=== PATIENT | female | born 1975 | race Caucasian/White ===

== ENCOUNTER 2018-04-27 10:02 | Emergency (ER) | payer SELFPAY ==
[~2018-04-27 10:02] MED LIST: ACE3 PO; ACET-1935 PO; ALB0.5 INH; ALBU8.5H12 IH; AZIT1PAC21 PO; BAC10 PO; BEN100 PO; BENZ100C4 PO; CEP500 PO; CEPH-13 PO; CODE118S5 PO; CYCL10TA29 PO; DOXY100T3 PO; GUAI-645 PO; HYDR-653 PO; IBU600 PO; IBU800 PO; IBUP-1618 PO; IBUP-56 PO; IBUP600T22 PO; INDO-21 PO; LOR5 PO; LOR5/325 PO; NO RTN MEDS; PHEN120S16 PO; PRE20 PO; PRED-314 PO; PREN-67 PO; ROBC PO; SERT-177 PO; TRA50 PO
--- NOTE | 2018-04-27 10:04 | ER Report ---
History and Physical Time Seen By MD: 10:04 HPI/ROS CHIEF COMPLAINT: Cough, shortness breath HISTORY OF PRESENT ILLNESS: Patient is a 42-year-old female with a history of active smoking here with several day history of cough, shortness breath, wheezing, rhinorrhea, general malaise, myalgias, arthralgias. Patient reports nausea without vomiting, decreased appetite. Patient was tolerating oral intake without issues. Patient does not have nebulizers or inhalers at home. Patient was noted to be tachycardic at time of evaluation with oxygen saturations of 90% on room air, normotensive, afebrile. Patient reports having a history of recurrent bronchitis. Denies abdominal pain. REVIEW OF SYSTEMS: Constitutional: + chills. Eyes: No discharge. ENT: + mild sore throat. Cardiovascular: No chest pain, no palpitations. Respiratory: + dry cough, + wheezing and shortness of breath. Gastrointestinal: No abdominal pain, no vomiting, + intermittent Genitourinary: No hematuria. Musculoskeletal: No back pain. + myalgias/arthralgias Skin: No rashes. Neurological: No headache. Allergies: Coded Allergies: No Known Drug Allergies (Verified , 04/27/18) Uncoded Allergies: ORANGES (Allergy, Mild, 05/14/10) Home Meds Active Scripts Oseltamivir Phosphate (TAMIFLU) 75 Mg Cap, 75 MG PO BID for 5 Days, #10 CAP 0 Refills Prov:NAYLA MORRIS DO 04/27/18 Albuterol Sulfate (PROVENTIL HFA) 6.7 Gm Inh, 2 PUFF INH Q4-6H, #1 INH Prov:NAYLA MORRIS DO 04/27/18 Promethazine HCl/Codeine (Prometh-Codein 6.25-10 mg/5 ml) 5 Ml Syrup, 1 TBS PO QHS PRN for COUGH, #1 BOT Prov:NAYLA MORRIS DO 04/27/18 Prednisone (PREDNISONE) 50 Mg Tablet, 50 MG PO QDAY for 4 Days, #4 TAB Prov:NAYLA MORRIS DO 04/27/18 Hx Smoking: Yes (1/2PPD) Smoking Status: Current: Every Day Smoker Hx Substance Use Disorder: No Hx Alcohol Use: Yes (OCC) Constitutional Vital Sign - Last 24 Hours 2/704/27/18 04/27/18 04/27/18 10:10 10:27 10:27 10:34 Temp 97.9 Pulse 117 88 94 Resp 16 17 17 B/P (MAP) 127/74 Pulse Ox 90 92 O2 Delivery Room Air Nasal Cannula O2 Flow Rate 2.0 Physical Exam General Appearance: The patient is alert, has no immediate need for airway protection and no signs of toxicity. NAD Eyes: Pupils equal and round no pallor or injection. ENT, Mouth: Mucous membranes are moist. + mild erythema without exudates of post oropharynx Respiratory: + diffuse wheezing in all lung bass. Cardiovascular: Regular rhythm, + rapid HR Gastrointestinal: Abdomen is soft and. non tender, no masses, bowel sounds normal. Neurological: No focal neuro finding Skin: Warm and dry, no rashes. Musculoskeletal: Neck is supple non tender. Extremities are nontender, nonswollen and have full range of motion. DIFFERENTIAL DIAGNOSIS: After history and physical exam differential diagnosis was considered for shortness of breath including but not limited to pulmonary infectious process, COPD, asthma, pulmonary embolus and congestive heart failure. Medical Decision Making Data Points Laboratory Hematology Test 04/27/18 10:14 Influenza Virus Type A (PCR) Positive (NEGATIVE) Influenza Virus Type B (PCR) Negative (NEGATIVE) Chemistry Test 04/27/18 10:14 Influenza Virus Type A (PCR) Positive (NEGATIVE) Influenza Virus Type B (PCR) Negative (NEGATIVE) EKG/Imaging Imaging Location: [facility] [place] Patient: Heather Stearns : 1975 Visit/Account:[id number] Date of : 04/27/2018 Exam type: CHEST PA LAT History: Cough for a few days, smoking history, history of bronchitis Comparison: June 20, 2012. Findings: The lungs are free of acute effusions, infiltrates or edema. The cardiac silhouette is normal in size. The trachea is in midline. There are very mild degenerative changes of the thoracic spine IMPRESSION: 1. No acute cardiopulmonary process is seen ED Course/Re-evaluation ED Course Patient is a 42-year-old female here with complaints of cough, shortness breath, wheezing, diffuse myalgias and arthralgias. Chest x-ray, influenza screen were checked. Chest x-ray showed no acute consolidations or effusions. Patient received nebulizers, prednisone for initial treatment. Four subsequent day course of prednisone 50 mg was prescribed, patient was given scripts for promethazine with codeine, inhaler, Tamiflu as the patient was positive for influenza. Zofran prescription provided. Close PCP follow-up recommended. Return precautions provided. Decision to Disposition Date: Apr 27, 2018 Decision to Disposition Time: 11:26 Depart Departure Latest Vital Signs Vital Signs Date Time Temp Pulse Resp B/P (MAP) Pulse Ox O2 Delivery O2 Flow Rate FiO2 04/27/18 10:34 94 17 04/27/18 10:27 92 Nasal Cannula 2.0 04/27/18 10:10 97.9 127/74 Impression: Primary Impression: Cough Additional Impression: Influenza Condition: Improved Disposition: HOME OR SELF-CARE New Scripts Ondansetron 4 Mg Odt (ONDANSETRON 4 MG ODT) 4 Mg Tab.rapdis 4 MG PO Q6-8H PRN for NAUSEA, #20 TAB Prov: NAYLA MORRIS DO 04/27/18 Oseltamivir Phosphate (TAMIFLU) 75 Mg Cap 75 MG PO BID for 5 Days, #10 CAP 0 Refills Prov: NAYLA MORRIS DO 04/27/18 Albuterol Sulfate (PROVENTIL HFA) 6.7 Gm Inh 2 PUFF INH Q4-6H, #1 INH Prov: NAYLA MORRIS DO 04/27/18 Promethazine HCl/Codeine (Prometh-Codein 6.25-10 mg/5 ml) 5 Ml Syrup 1 TBS PO QHS PRN for COUGH, #1 BOT Prov: NAYLA MORRIS DO 04/27/18 Prednisone (PREDNISONE) 50 Mg Tablet 50 MG PO QDAY for 4 Days, #4 TAB Prov: NAYLA MORRIS S DO 04/27/18 Patient Instructions: Acute Cough (GEN) Additional Instructions: Please drink plenty of water. Take 1 tablet of Tamiflu twice daily for 5 days. You may take 2 puffs of albuterol inhaler every 4-6 hours as needed for wheezing and shortness of breath. Please take 50 mg of prednisone daily for the next 4 days to complete a five-day course. Please return promptly if you develop worsening cough, fevers, inability to keep down food or fluids. You may take 1 teaspoon of promethazine and codeine at night for persistent cough. Please follow-up with your primary care provider in the next 3 days. Problem Qualifiers NAYLA MORRIS DO Apr 27, 2018 10:04
[2018-04-27 10:10] VITALS: BP 127/74
[2018-04-27] MEDS ORDERED: ALBUTEROL/IPRATROPIUM 3 ML NEB NEB ONE ×2 (10:15)
[2018-04-27] MEDS ORDERED: predniSONE 20 MG TAB PO ONE (10:20)
[2018-04-27] MEDS ORDERED: PROM5SYR PO (10:59)
[2018-04-27] MEDS ORDERED: PRED50TA22 PO (10:59)
[2018-04-27] MEDS ORDERED: AZIT-17 PO (10:59)
[2018-04-27] MEDS ORDERED: ALB6.7R INH (10:59)
--- NOTE | 2018-04-27 11:18 | RADIOLOGY IMAGING REPORT ---
FACILITY: [facility] - [place] PATIENT NAME: Heather Stearns : 1975 MR: [id number] V: [id number] EXAM DATE: ORDERING PHYSICIAN: NAYLA MORRIS TECHNOLOGIST: Location: [facility] Patient: Heather Stearns : 1975 Visit/Account:[id number] Date of Sevice: 04/27/2018 Exam type: CHEST PA LAT History: Cough for a few days, smoking history, history of bronchitis Comparison: June 20, 2012. Findings: The lungs are free of acute effusions, infiltrates or edema. The cardiac silhouette is normal in siz e. The trachea is in midline. There are very mild degenerative changes of the thoracic spine IMPRESSION: 1. No acute cardiopulmonary process is seen Report Dictated By: Lucy Chow MD at 04/27/2018 11:08 AM Report E-Signed By: Lucy Chow MD at 04/27/2018 11:14 AM WSN:[email or web address]
[2018-04-27] MEDS ORDERED: OSE75 PO (11:21)
[2018-04-27] MEDS ORDERED: ONDA4TAB9 PO (11:32)
== END 2018-04-27 11:40 | disposition home or self-care (01) ==
LOC: ER 10:15
DX: J11.1 Influenza due to unidentified influenza virus with other respiratory manifestations (principal)
CPT/HCPCS: 71046; 87502; 94640; 99283; J7512; J7620

== ENCOUNTER 2018-06-20 18:49 | Emergency (ER) | payer SELFPAY ==
[~2018-06-20 18:49] MED LIST changes: +ALB6.7R INH; +AZIT-17 PO; +ONDA4TAB9 PO; +OSE75 PO; +PRED50TA22 PO; +PROM5SYR PO
--- NOTE | 2018-06-20 19:05 | ER Report ---
History and Physical Time Seen By MD: 19:00 Hx. of Stated Complaint: PT REPORTS R SIDED MID BACK PAIN THAT RADIATES TO THE FRONT, DENIES INJURY, PAIN STARTED AT 1730 HPI/ROS CHIEF COMPLAINT: Right side pain HISTORY OF PRESENT ILLNESS: 43 year old female presents to the ED with right side pain that started at 1730 when sitting down in a chair. Reports pain is located left posterior axillary line along costal margin that radiates to her mid back between her scapula and to mid axillary line under her armpit. Pain is 10 out of 10, sharp and stabbing. Reports it hurts to breath. Denies taking anything for the pain. Patient reports she has not done any activity today or this past week that would cause the pain; reports she has not done anything out of the abnormal. No hx of injury to that area. REVIEW OF SYSTEMS: Constitutional: Denies fevers, chills. HEENT: No vision changes, no headache, no dizziness. Respiratory: No cough. Reports difficulty breathing due to the pain. Cardiovascular: No chest pain, no palpitations. Gastrointestinal: No vomiting, no abdominal pain. Musculoskeletal: Reports pain located at left posterior axillary line that radiates to her mid upper back and under her armpit. Allergies: Coded Allergies: No Known Drug Allergies (Verified , 06/20/18) Uncoded Allergies: ORANGES (Allergy, Mild, 05/14/10) Home Meds Active Scripts Hydrocodone Bit/Acetaminophen (HYDROCODON-ACETAMINOPHEN 5-325) 1 Each Tablet, 1 EACH PO Q4-6H PRN for PAIN, #12 TAB Prov:MILADYS POE [employer] 06/20/18 Discontinued Scripts Ondansetron 4 Mg Odt (ONDANSETRON 4 MG ODT) 4 Mg Tab.rapdis, 4 MG PO Q6-8H PRN for NAUSEA, #20 TAB Prov:NAYLA MORRIS DO 04/27/18 Oseltamivir Phosphate (TAMIFLU) 75 Mg Cap, 75 MG PO BID for 5 Days, #10 CAP 0 Refills Prov:NAYLA MORRIS DO 04/27/18 Albuterol Sulfate (PROVENTIL HFA) 6.7 Gm Inh, 2 PUFF INH Q4-6H, #1 INH Prov:NAYLA MORRIS DO 04/27/18 Promethazine HCl/Codeine (Prometh-Codein 6.25-10 mg/5 ml) 5 Ml Syrup, 1 TBS PO QHS PRN for COUGH, #1 BOT Prov:NAYLA MORRIS DO 04/27/18 Prednisone (PREDNISONE) 50 Mg Tablet, 50 MG PO QDAY for 4 Days, #4 TAB Prov:NAYLA MORRIS DO 04/27/18 Past Medical/Surgical History Past medical history significant for heart murmur, bronchitis. Past surgical history significant for tubal ligation and left foot orthopedic surgery. Reviewed Nurses Notes: Yes Hx Smoking: Yes (1/2PPD) Smoking Status: Current: Every Day Smoker Hx Substance Use Disorder: No Hx Alcohol Use: Yes (OCC) Constitutional Vital Sign - Last 24 Hours 06/20/18 06/20/18 06/20/18 06/20/18 18:50 19:00 19:15 20:15 Temp 98.3 Pulse 100 101 99 89 Resp 24 17 16 38 B/P (MAP) 155/91 146/97 (113) Pulse Ox 92 91 92 89 O2 Delivery Room Air 06/20/18 06/20/18 06/20/18 06/20/18 20:20 20:30 20:45 21:00 Pulse 85 90 83 Resp 9 21 18 B/P (MAP) 116/91 (99) 108/84 (92) 117/89 (98) Pulse Ox 90 92 90 06/20/18 06/20/18 06/20/18 06/20/18 21:15 21:20 21:25 21:30 Pulse 88 85 88 86 Resp 9 16 19 11 B/P (MAP) 111/75 (87) Pulse Ox 91 90 92 90 06/20/18 06/20/18 06/20/18 06/20/18 21:35 21:40 21:41 21:45 Pulse 81 91 89 Resp 18 15 9 B/P (MAP) 136/77 (96) Pulse Ox 91 90 93 Physical Exam General Appearance: The patient is alert, has no immediate need for airway protection and no current signs of toxicity. Eyes: Pupils equal and round no injection. Respiratory: Chest is non tender, lungs with wheezing throughout to auscultation. Cardiac: regular rate and rhythm Gastrointestinal: Abdomen is soft and non tender, no masses, bowel sounds normal. Musculoskeletal: Pain with palpation to left axiallary line along rib cage and mid back between scapula. Skin: No rashes or lesions. DIFFERENTIAL DIAGNOSIS: After history and physical exam differential diagnosis was considered for PE, muscle strain, pneumonia, pancreatitis, cholecystitis, abdominal dissection, pyelonephritis. Medical Decision Making Data Points Result Diagram: 06/20/18190406/20/181904 Laboratory Hematology Test 06/20/18 19:05 06/20/18 20:45 06/20/18 21:02 06/20/18 21:07 Red Blood Count 5.34 M/uL (4.17-5.56) Mean Corpuscular Volume 93.9 fL (80.0-96.0) Mean Corpuscular Hemoglobin 32.1 pg (26.0-33.0) Mean Corpuscular Hemoglobin Concent 34.2 g/dL (32.0-36.0) Red Cell Distribution Width 13.2 % (11.5-14.5) Mean Platelet Volume 8.0 fL (7.2-11.1) Neutrophils (%) (Auto) 63.4 % (39.4-72.5) Lymphocytes (%) (Auto) 27.5 % (17.6-49.6) Monocytes (%) (Auto) 6.2 % (4.1-12.4) Eosinophils (%) (Auto) 1.7 % (0.4-6.7) Basophils (%) (Auto) 1.2 % (0.3-1.4) Nucleated RBC Relative Count (auto) 0.1 /100WBC Neutrophils # (Auto) 6.9 K/uL (2.0-7.4) Lymphocytes # (Auto) 3.0 K/uL (1.3-3.6) Monocytes # (Auto) 0.7 K/uL (0.3-1.0) Eosinophils # (Auto) 0.2 K/uL (0.0-0.5) Basophils # (Auto) 0.1 K/uL (0.0-0.1) Nucleated RBC Absolute Count (auto) 0.01 K/uL Erythrocyte Sedimentation Rate 25 mm/HOUR (0-20) D-Dimer Quantitative (PE/DVT) 0.92 ug/ml (0-0.50) Sodium Level 135 mmol/L (137-145) Potassium Level 4.2 mmol/L (3.5-5.0) Chloride Level 96 mmol/L (98-107) Carbon Dioxide Level 28 mmol/L (22-31) Blood Urea Nitrogen 11 mg/dl (7-18) Creatinine 0.70 mg/dl (0.52-1.04) Glomerular Filtration Rate Calc > 60.0 Random Glucose 96 mg/dl (75-110) Calcium Level 9.2 mg/dl (8.4-10.2) Total Bilirubin < 0.1 mg/dl (0.2-1.3) Aspartate Amino Transf (AST/SGOT) 22 U/L (0-35) Alanine Aminotransferase (ALT/SGPT) 27 U/L (0-56) Alkaline Phosphatase 84 U/L (0-126) C-Reactive Protein 2.3 mg/dl (<1.0) Total Protein 8.2 g/dl (6.3-8.2) Albumin 4.4 g/dl (3.5-5.0) Amylase Level 59 U/L (0-110) Lipase 58 U/L (23-300) Urine Color Yellow Urine Clarity Slightly-cloudy Urine pH 5.0 pH (4.8-9.5) Urine Specific Benedict S3 Urine Protein Negative mg/dL (NEGATIVE) Urine Glucose (UA) Negative mg/dL (NEGATIVE) Urine Ketones Negative mg/dL (NEGATIVE) Urine Blood Negative (NEGATIVE) Urine Nitrite Negative (NEGATIVE) Urine Bilirubin Negative (NEGATIVE) Urine Urobilinogen Negative mg/dL (0.2-1.9) Urine Leukocyte Esterase Negative (NEGATIVE) Urine RBC 2 /HPF (0-2/HPF) Urine WBC 4 /HPF (0-5/HPF) Urine Squamous Epithelial Cells Many /LPF (</=FEW) Urine Bacteria Few /HPF (NONE-FEW) Urine Mucus Few /HPF (NONE-FEW) Fibrinogen 342 mg/dL (169-449) Chemistry Test 06/20/18 19:05 06/20/18 20:45 06/20/18 21:02 06/20/18 21:07 White Blood Count 10.9 k/uL (4.5-11.0) Red Blood Count 5.34 M/uL (4.17-5.56) Hemoglobin 17.1 g/dL (12.0-16.0) Hematocrit 50.1 % (34.0-47.0) Mean Corpuscular Volume 93.9 fL (80.0-96.0) Mean Corpuscular Hemoglobin 32.1 pg (26.0-33.0) Mean Corpuscular Hemoglobin Concent 34.2 g/dL (32.0-36.0) Red Cell Distribution Width 13.2 % (11.5-14.5) Platelet Count 276 K/uL (150-450) Mean Platelet Volume 8.0 fL (7.2-11.1) Neutrophils (%) (Auto) 63.4 % (39.4-72.5) Lymphocytes (%) (Auto) 27.5 % (17.6-49.6) Monocytes (%) (Auto) 6.2 % (4.1-12.4) Eosinophils (%) (Auto) 1.7 % (0.4-6.7) Basophils (%) (Auto) 1.2 % (0.3-1.4) Nucleated RBC Relative Count (auto) 0.1 /100WBC Neutrophils # (Auto) 6.9 K/uL (2.0-7.4) Lymphocytes # (Auto) 3.0 K/uL (1.3-3.6) Monocytes # (Auto) 0.7 K/uL (0.3-1.0) Eosinophils # (Auto) 0.2 K/uL (0.0-0.5) Basophils # (Auto) 0.1 K/uL (0.0-0.1) Nucleated RBC Absolute Count (auto) 0.01 K/uL Erythrocyte Sedimentation Rate 25 mm/HOUR (0-20) D-Dimer Quantitative (PE/DVT) 0.92 ug/ml (0-0.50) Glomerular Filtration Rate Calc > 60.0 Calcium Level 9.2 mg/dl (8.4-10.2) Total Bilirubin < 0.1 mg/dl (0.2-1.3) Aspartate Amino Transf (AST/SGOT) 22 U/L (0-35) Alanine Aminotransferase (ALT/SGPT) 27 U/L (0-56) Alkaline Phosphatase 84 U/L (0-126) C-Reactive Protein 2.3 mg/dl (<1.0) Total Protein 8.2 g/dl (6.3-8.2) Albumin 4.4 g/dl (3.5-5.0) Amylase Level 59 U/L (0-110) Lipase 58 U/L (23-300) Urine Color Yellow Urine Clarity Slightly-cloudy Urine pH 5.0 pH (4.8-9.5) Urine Specific Benedict S3 Urine Protein Negative mg/dL (NEGATIVE) Urine Glucose (UA) Negative mg/dL (NEGATIVE) Urine Ketones Negative mg/dL (NEGATIVE) Urine Blood Negative (NEGATIVE) Urine Nitrite Negative (NEGATIVE) Urine Bilirubin Negative (NEGATIVE) Urine Urobilinogen Negative mg/dL (0.2-1.9) Urine Leukocyte Esterase Negative (NEGATIVE) Urine RBC 2 /HPF (0-2/HPF) Urine WBC 4 /HPF (0-5/HPF) Urine Squamous Epithelial Cells Many /LPF (</=FEW) Urine Bacteria Few /HPF (NONE-FEW) Urine Mucus Few /HPF (NONE-FEW) Fibrinogen 342 mg/dL (169-449) Coagulation Test 06/20/18 19:05 06/20/18 21:02 06/20/18 21:07 D-Dimer Quantitative (PE/DVT) 0.92 ug/ml Fibrinogen 342 mg/dL Urinalysis Test 06/20/18 20:45 Urine Color Yellow Urine Clarity Slightly-cloudy Urine pH 5.0 pH (4.8-9.5) Urine Specific Benedict S3 Urine Protein Negative mg/dL (NEGATIVE) Urine Glucose (UA) Negative mg/dL (NEGATIVE) Urine Ketones Negative mg/dL (NEGATIVE) Urine Blood Negative (NEGATIVE) Urine Nitrite Negative (NEGATIVE) Urine Bilirubin Negative (NEGATIVE) Urine Urobilinogen Negative mg/dL (0.2-1.9) Urine Leukocyte Esterase Negative (NEGATIVE) Urine RBC 2 /HPF (0-2/HPF) Urine WBC 4 /HPF (0-5/HPF) Urine Squamous Epithelial Cells Many /LPF (</=FEW) Urine Bacteria Few /HPF (NONE-FEW) Urine Mucus Few /HPF (NONE-FEW) EKG/Imaging EKG Interpretation 12 lead EKG: Rhythm: normal sinus rhythm [place]: normal QRS: normal ST segments: normal Monitor Interpretation: Normal Sinus Rhythm Imaging FINDINGS: Positive for bilateral pulmonary arterial emboli. There is thrombus in the right lower lobe artery extending into a segmental and subsegmental distribution. There is subsegmental thrombus in the right upper lobe. There is segmental and subsegmental thrombus in the left lower lobe. The RV to LV ratio remains less than one. No reflux of contrast into the hepatic veins. No right atrial enlargement. Thyroid: Normal Thoracic inlet: No thoracic lymphadenopathy. Heart and great vessels: Heart size is normal. Mediastinum and shanika: No mediastinal or hilar adenopathy. Lungs and pleura: No effusion, consolidation, or pneumothorax. Trace atelectasis at the lung bases. Breast and axilla: Not diagnostically imaged. Bones and soft tissues: No acute osseous abnormality Upper abdomen: Unremarkable. IMPRESSION: Positive for bilateral pulmonary arterial emboli. The clot burden is most notable in the lower lobes involving a segmental and subsegmental distribution. There is minimal clot in the right upper lobe. No CT findings of cardiac strain. ED Course/Re-evaluation ED Course Patient admitted to an exam room, history and physical obtained, differentials considered. Patient presents to ED with right side pain that started at 1730 when sitting down in a chair. Reports pain is located left posterior axillary line along costal margin that radiates to her mid back between her scapula and to mid axillary line under her armpit. Pain is 10 out of 10, sharp and stabbing. Reports it hurts to breath. Denies taking anything for the pain. No hx of injury to that area. Patient unable to take a deep breath due to the pain. Denies nausea, vomiting. Lungs with wheezing throughout. Pain with palpation to left axillary line and mid back. CBC, CMP, d-dimer, amylase, lipase, ESR, CRP, UA EKG, chest x-ray ordered. IV started, NS 1000ml infused. Toradol 15mg IV and Norflex 30 mg IV given. D-dimer 0.92, ESR 25, CRP 2.3. Chest x-ray canceled, and CTA ordered. CTA: Positive for bilateral pulmonary arterial emboli. The clot burden is most notable in the lower lobes involving a segmental and subsegmental distribution. There is minimal clot in the right upper lobe. No CT findings of cardiac strain. Coagulopathy studies ordered. Patient does not have insurance or a primary health care provider. Discussed treatment options with the patient. Patient would like to go with xeralto. Patient given 3 days worth of xeralto to go home with and [facility] or two. She is to return to the ED if she is unable to follow-up with them for a prescription for xarelto. Will also give lortab for pain. Patient is in agreement with plan of care. Decision to Disposition Date: Jun 20, 2018 Decision to Disposition Time: 21:25 Depart Departure Latest Vital Signs Vital Signs Date Time Temp Pulse Resp B/P (MAP) Pulse Ox O2 Delivery O2 Flow Rate FiO2 06/20/18 21:45 89 9 93 06/20/18 21:41 136/77 (96) 06/20/18 18:50 98.3 Room Air Impression: Primary Impression: Pulmonary emboli Condition: Improved Disposition: HOME OR SELF-CARE New Scripts Hydrocodone Bit/Acetaminophen (HYDROCODON-ACETAMINOPHEN 5-325) 1 Each Tablet 1 EACH PO Q4-6H PRN for PAIN, #12 TAB Prov: MILADYS POE 06/20/18 Patient Instructions: Pulmonary Embolism (DC) Additional Instructions: Increase fluid intake. Get plenty of rest. Follow up [facility]. Return to the ER if condition worsens, or you are not able to get your medications. Take your medications as prescribed. Problem Qualifiers Primary Impression: Pulmonary emboli Pulmonary embolism type: other Chronicity: acute Acute cor pulmonale presence: without acute cor pulmonale Qualified Codes: I26.99 - Other pulmonary embolism without acute cor pulmonale MILADYS POE Jun 20, 2018 19:05
[2018-06-20] MEDS ORDERED: NS(*) 0.9% 1000 ML BAG 1,000 ML IV ONE (19:10)
[2018-06-20] MEDS ORDERED: KETOROLAC 15 MG/ML VIAL IVP ONE (19:10)
[2018-06-20] MEDS ORDERED: ORPHENADRINE 60MG/2ML INJ IVP ONE (19:10)
[2018-06-20 19:21] LABS: PLATELET COUNT, AUTOMATED 276 K/uL (150-450)
[2018-06-20] MEDS ORDERED: IOPAMIDOL 76% 150 ML INFUS BTL 150 ML ONE (20:04)
[2018-06-20] MEDS ORDERED: NS 0.9% 25 ML BAG 50 ML ONE (20:04)
[2018-06-20] MEDS ORDERED: NS 0.9% 25 ML BAG 25 ML ONE (20:27)
--- NOTE | 2018-06-20 20:40 | RADIOLOGY IMAGING REPORT ---
FACILITY: [facility] PATIENT NAME: Heather Stearns : 1975 MR: [id number] V: [id number] EXAM DATE: ORDERING PHYSICIAN: MILADYS POE TECHNOLOGIST: Location: [facility] - [place] Patient: Heather Stearns : 1975 Visit/Account:[id number] Date of Sevice: 06/20/2018 HISTORY: Cough for a few days. DATE: 06/20/2018 7:10 PM TECHNIQUE: CHEST PA LAT COMPARISON: CT PE of the same day FINDINGS: The cardiomediastinal silhouette is of normal size and contour. No pleural effusion. No pne umothorax. No consolidation. The lungs are adequately expanded. IMPRESSION: No radiographically conspicuous findings. Report Dictated By: Dave Kelley MD at 06/20/2018 8:36 PM Report E-Signed By: Dave Kelley MD at 06/20/2018 8:36 PM WSN:[email or web address]
--- NOTE | 2018-06-20 20:44 | RADIOLOGY IMAGING REPORT ---
FACILITY: [facility] PATIENT NAME: Heather Stearns : 1975 MR: [id number] V: [id number] EXAM DATE: ORDERING PHYSICIAN: MILADYS POE TECHNOLOGIST: Location: [facility] Patient: Heather Stearns : 1975 Visit/Account:[id number] Date of Sevice: 06/20/2018 CT ANGIOGRAM OF THE CHEST WITH INTRAVENOUS CONTRAST, PE PROTOCOL DATE OF EXAM: 06/20/2018 19:43 COMPARISON: Chest radiographs of the same day. INDICATION: elevated d-dimer. TECHNIQUE: Contrast enhanced chest CT performed during the injection of 75 ml of Isovue 370. Three-d imensional (MIP) reconstructions were performed. FINDINGS: Positive for bilateral pulmonary arterial emboli. There is thrombus in the right lower lobe artery e xtending into a segmental and subsegmental distribution. There is subsegmental thrombus in the right upper lobe. There is segmental and subsegmental thrombus in the left lower lobe. The RV to LV rati o remains less than one. No reflux of contrast into the hepatic veins. No right atrial enlargement. Thyroid: Normal Thoracic inlet: No thoracic lymphadenopathy. Heart and great vessels: Heart size is normal. Mediastinum and shanika: No mediastinal or hilar adenopathy. Lungs and pleura: No effusion, consolidation, or pneumothorax. Trace atelectasis at the lung bases. Breast and axilla: Not diagnostically imaged. Bones and soft tissues: No acute osseous abnormality Upper abdomen: Unremarkable. IMPRESSION: Positive for bilateral pulmonary arterial emboli. The clot burden is most notable in the lower lobes involving a segmental and subsegmental distribution. There is minimal clot in the right upper lobe. No CT findings of cardiac strain. Results were called to Dr. MILADYS POE at 06/20/2018 8:34 PM. One of the following dose optimization techniques was utilized in the performance of this exam: Autom ated exposure control; adjustment of the mA and/or kV according to the patient's size; or use of an i terative reconstruction technique. Specific details can be referenced in the facility's radiology C T exam operational policy. Report Dictated By: Dave Kelley MD at 06/20/2018 8:22 PM Report E-Signed By: Dave Kelley MD at 06/20/2018 8:40 PM WSN:[email or web address]
[2018-06-20] MEDS ORDERED: RIVAROXABAN 10 MG TAB PO ONE ×2 (20:55→21:15)
[2018-06-20] MEDS ORDERED: HYDR-385 PO (21:03)
[2018-06-20] MEDS ORDERED: ACET/HYDROC 5/325MG TH ER ONLY 2 TAB/BOTTLE PO ONE (21:15)
[2018-06-20 21:41] VITALS: BP 136/77
--- NOTE | 2018-06-20 22:02 | EKG ---
FACILITY: [facility] PATIENT NAME: KARAN HOLDER : [id number] MR: [id number] V: [id number] EXAM DATE: ORDERING PHYSICIAN: MILADYS POE TECHNOLOGIST: SUNG Test Reason : RIGHT FLANK PAIN Blood Pressure : / mmHG Vent. Rate : 092 BPM Atrial Rate : 092 BPM P-R Int : 162 ms QRS Dur : 078 ms QT Int : 346 ms P-R-T Axes : 039 -19 038 degrees QTc Int : 427 ms Normal sinus rhythm Anteroseptal infarct , age undetermined Abnormal ECG No previous ECGs available Confirmed by CARLOS GARCIA ([id number]) on 06/21/2018 6:37:02 AM Referred By: Confirmed By:CARLOS GARCIA
== END 2018-06-20 21:45 | disposition home or self-care (01) ==
LOC: ER 19:50
DX: I26.99 Other pulmonary embolism without acute cor pulmonale (principal); R05 Cough; R79.89 Other specified abnormal findings of blood chemistry; F17.200 Nicotine dependence, unspecified, uncomplicated; R06.00 Dyspnea, unspecified
CPT/HCPCS: 36415; 71046; 71275; 81001; 81241; 81291; 82150; 83090; 83690; 85025; 85210; 85240; 85300; 85302; 85303; 85305; 85306; 85379; 85384; 85610; 85613; 85651; 85670; 85730; 86140; 86146; 86147; 93005; 96361; 96374; 96375; 99284; J1885; J2360; J7030; Q9967; 82040; 82247; 82310; 82374; 82435; 82565; 82947; 84075; 84132; 84155; 84295; 84450; 84460; 84520

== ENCOUNTER → 2018-06-30 | Outpatient (REF) ==
[~2018-06-30] MED LIST changes: +HYDR-385 PO
--- NOTE | 2018-06-30 10:41 | RADIOLOGY IMAGING REPORT ---
FACILITY: [facility] - [place] PATIENT NAME: Heather Stearns : 1975 MR: [id number] V: [id number] EXAM DATE: [id number] ORDERING PHYSICIAN: TANK ZHENG TECHNOLOGIST: Location: [facility] [place] Patient: Heather Stearns : 1975 Visit/Account:[id number] Date of Sevice: 06/30/2018 Exam type: US VENOGRAM EXTREMITY, BILATERAL History: History of recent pulmonary embolism Comparison: CTA of the chest June 20, 2018. Findings: The right common femoral vein greater saphenous vein superficial femoral vein anterior tibial vein an d peroneal veins were compressible and demonstrated augmentation. There was however noncompressible thrombus in the right popliteal vein and the proximal right posterior tibial vein. Left common femoral vein greater saphenous vein sufficient femoral vein popliteal vein. Peroneal vein posterior tibial vein and anterior tibial veins were compressible and demonstrated augm entation IMPRESSION: 1. Finds are consistent with DVT in the right popliteal vein and proximal right posterior tibial vei n. The patient is currently on anticoagulation for her known pulmonary embolism. The patient's [facility] provider was not working today however a message was left at the clinic to overcome her of the se findings. Report Dictated By: Lucy Chow MD at 06/30/2018 10:24 AM Report E-Signed By: Lucy Chow MD at 06/30/2018 10:36 AM WSN:[email or web address]
== END ==
LOC: US 08:47
PROVIDERS: ATTEND Registered Nurse Psychiatric/Mental Health
DX: I82.431 Acute embolism and thrombosis of right popliteal vein (principal); I82.442 Acute embolism and thrombosis of left tibial vein
CPT/HCPCS: 93970